=== PATIENT | male | born 1955 | race Caucasian/White ===

== ENCOUNTER 2017-06-19 09:25 | Day surgery (SDC) | payer BC ==
[2017-06-14 14:46] VITALS: BMI 27.2
[2017-06-19 10:12] VITALS: RESP 16; TEMP 97
[2017-06-19] MEDS ORDERED: LACTATED RINGERS 1,000 ML IV ONE ×2 (10:19)
[2017-06-19] MEDS ORDERED: LIDOCAINE 1% 20 ML VIAL (10MG/ML) FOR IV START INTRADERMA ONE (10:20)
[2017-06-19] MEDS ORDERED: PROPOFOL 10 MG/ML 20 ML VIAL IV ONE (10:48)
[2017-06-19] MEDS ORDERED: LIDOCAINE 1% INJ 10MG/ML (20 ML MDV) ONE (10:48)
[2017-06-19 11:40] VITALS: BP 146/86; PULSE 76
--- NOTE | 2017-06-19 18:21 | P.PCN ---
Date of Procedure: 06/19/17 Procedure(s) Performed: Procedure: Colonoscopy and polypectomy. Preoperative diagnosis: Screening for neoplasia, patient has history of polyps. Postoperative diagnosis: 1. Small distal sigmoid polyp snared but no large polyps or cancer. 2. Sigmoid diverticulosis with no evidence of acute diverticulitis or strictures. Preparation: HalfLytely prep. Sedation: Was provided by anesthesia. Brief clinical history: The patient is 61-year-old male who is scheduled for this evaluation for screening for neoplasia because of history of polyps. His last exam was around 5 years ago. The patient has no abdominal complaints, bleeding or anemia. Procedure: With the patient on his left lateral decubitus position and after informed consent and adequate sedation the perianal area was inspected and it did not show any fissures or fistulas. There were no masses felt on digital rectal examination. The Olympus CFQ 160L video colonoscope was then inserted in the rectum in the usual fashion and advanced to the cecum. There were several diverticular orifices seen scattered in the sigmoid with no evidence of acute diverticulitis or strictures. There was a small distal sigmoid polyp that was snared and retrieved by suction, but there were no large polyps or cancer. I retroflexed the endoscope in the rectum before the endoscope was withdrawn. The patient tolerated the procedure well. Plan: The patient was reassured. Discussed dietary measures. He will follow up with you as planned and I recommended repeat exam in 5 years.
== END 2017-06-19 11:50 | disposition home or self-care (01) ==
LOC: ORWHC2ENDO 09:25
DX: Z12.11 Encounter for screening for malignant neoplasm of colon (principal); K63.5 Polyp of colon; K57.30 Diverticulosis of large intestine without perforation or abscess without bleeding; I10 Essential (primary) hypertension; E78.5 Hyperlipidemia, unspecified; G47.33 Obstructive sleep apnea (adult) (pediatric); M10.9 Gout, unspecified; Z86.010 Personal history of colon polyps; Z79.1 Long term (current) use of non-steroidal anti-inflammatories (NSAID); Z79.899 Other long term (current) drug therapy
CPT/HCPCS: 45385; J2001; J2704

== ENCOUNTER → 2017-11-07 | Outpatient (CLI) | payer BC ==
--- NOTE | 2017-11-07 13:24 | US ---
EXAMINATION TYPE: US mass soft tissue chest/back DATE OF EXAM: 11/07/2017 COMPARISON: NONE CLINICAL HISTORY: D17.9 LIPOMA INTRAMUSCULAR. Lump right upper back for 8-10 years, getting larger Scanned within area of concern, right upper back, hypoechoic area noted = 9.2 x 2.4 x 6.5cm within th e subcutaneous fat IMPRESSION: Findings compatible with lipoma. MRI with overlying marker could be performed for additi onal evaluation.
== END | disposition home or self-care (01) ==
LOC: RADUSWWP 11:58
PROVIDERS: ATTEND Surgery Plastic and Reconstructive Surgery
DX: D17.9 Benign lipomatous neoplasm, unspecified (principal)

== ENCOUNTER 2018-02-22 08:32 | Day surgery (SDC) | payer BC ==
[2018-02-20 11:20] VITALS: BMI 28.7
[~2018-02-22 08:32] MED LIST: DEXAMETHASONE SOD PHOSPHATE 10 MG/ML 1 ML VIAL IV ONE; HEPARIN SODIUM,PORCINE 5,000 UNIT/ML 1 ML VIAL SQ ONE; HYDROmorphone 1 MG/ML 1 ML SYRINGE IVP PRN; LACTATED RINGERS 1,000 ML IV SCH; MIDAZOLAM 2 MG/2 ML VIAL IV PRN; ONDANSETRON 4 MG/2 ML VIAL IVP ONE; Pre Op ABX Message 1 EACH MISC MISCELLANE ONE; SCOPOLAMINE 1.5MG/72HR PATCH TRANSDERM ONE
[2018-02-22] MEDS ORDERED: LIDOCAINE 1% 20 ML VIAL (10MG/ML) FOR IV START INTRADERMA ONE (09:05)
[2018-02-22] MEDS ORDERED: BUPIVACAIN-EPI 0.5%-1:200,000 30 ML VIAL SQ ONE (10:38)
[2018-02-22] MEDS ORDERED: ceFAZolin IN SWFI 2 GM/20 ML SYRINGE IVP STA (10:44)
--- NOTE | 2018-02-22 10:44 | P.GSHP ---
History of Present Illness H&P Date: 02/22/18 CHIEF COMPLAINT: Back mass HISTORY OF PRESENT ILLNESS: The patient is a 62 year-old male with history of lipomas of the upper back. He presents today for surgical excision. PAST MEDICAL HISTORY: Please see list. PAST SURGICAL HISTORY: Please see list. MEDICATIONS: Please see list. ALLERGIES: Please see list. SOCIAL HISTORY: No illicit drug use FAMILY HISTORY: No reports of Crohn disease or ulcerative colitis. REVIEW OF ORGAN SYSTEMS: CONSTITUTIONAL: No reports of fevers or chills. GI: Denies any blood in stools or constipation. PHYSICAL EXAM: VITAL SIGNS: Stable Musculoskeletal: Approximately 20 cm lipomas, superficial, along the right upper back. SKIN: Lesion identified along bilateral thighs. GENERAL: Well developed and in no acute distress. Pleasant. HEENT: No sclera icterus. Extraocular movements grossly intact. Moist buccal mucosa. Head is atraumatic, normocephalic. Hears conversational speech. No nasal drainage. NECK: Supple without lymphadenopathy. No JV distention. CHEST: Non-labored respirations and equal bilateral excursions. CARDIOVASCULAR: Regular rate and rhythm. Palpable 2+ radial pulses. ABDOMEN: Soft. Non-tender. Nondistended. NEUROLOGIC: No focal or lateralizing signs. PSYCH: Appropriate affect. Alert and oriented to person, place and time. ASSESSMENT: 1. Lipoma along the upper back. PLAN: 1. Will proceed of excision of subcutaneous tumor along the upper back. 2. DVT prophylaxis. 3. Antibiotic prophylaxis. 4. Time of recovery, at least one week. Past Medical History Past Medical History: Hyperlipidemia, Hypertension, Skin Disorder, Sleep Apnea/ CPAP/BIPAP Additional Past Medical History / Comment(s): OCC KIDNEY STONES. GOUT. USES CPAP. HAS BACK LIPOMA AND LOWER BACK CYST. History of Any Multi-Drug Resistant Organisms: None Reported Additional Past Surgical History / Comment(s): COLONOSCOPY. Past Anesthesia/Blood Transfusion Reactions: No Reported Reaction Smoking Status: Former smoker - Past Family History Father Family Medical History: Cancer Mother Family Medical History: Cancer Medications and Allergies Home Medications Medication Instructions Recorded Confirmed Type Allopurinol [Zyloprim] 300 mg PO DAILY 06/14/17 02/20/18 History Atenolol [Tenormin] 25 mg PO DAILY 06/14/17 02/20/18 History Ibuprofen [Advil] 400 mg PO Q6HR PRN 06/14/17 02/20/18 History Simvastatin 40 mg PO DAILY 06/14/17 02/20/18 History Allergies Allergy/AdvReac Type Severity Reaction Status Date / Time No Known Allergies Allergy Verified 02/20/18 11:06 Surgical - Exam Vital Signs Temp Pulse Resp BP Pulse Ox 97.6 F 74 18 132/72 97 02/22/18 08:53 02/22/18 08:53 02/22/18 08:53 02/22/18 08:53 02/22/18 08:53
[2018-02-22] MEDS ORDERED: SUCCINYLCHOLINE CHLORIDE 100 MG/5 ML SYR IV ONE (10:46)
[2018-02-22] MEDS ORDERED: PROPOFOL 10 MG/ML 20 ML VIAL IV ONE (10:46)
[2018-02-22] MEDS ORDERED: MIDAZOLAM 2 MG/2 ML VIAL ONE (10:46)
[2018-02-22] MEDS ORDERED: ePHEDrine SULFATE/0.9% NACL/PF 50 MG/5 ML SYRINGE IV ONE (10:46)
[2018-02-22] MEDS ORDERED: LIDOCAINE 1% INJ 10MG/ML (20 ML MDV) ONE (10:46)
[2018-02-22] MEDS ORDERED: fentaNYL (PF) 50 MCG/ML 2 ML AMP ONE (10:46)
[2018-02-22] MEDS ORDERED: LACTATED RINGERS 1,000 ML IV ONE (11:37)
--- NOTE | 2018-02-22 12:25 | P.OP ---
Date of Procedure: 02/22/18 Description of Procedure: SURGEON: GAYE WHALEY MD NAIL MAKING MACHINE TENDER: None. PREOPERATIVE DIAGNOSES: 1. History of right upper back tumor, over 15 cm 2. Left lower back tumor, over 2 cm 3. Obstructive sleep apnea 4. Gout 5. Hyperlipidemia 6. Hypertensive heart disease POSTOPERATIVE DIAGNOSES: 1. History of right upper back tumor, over 15 cm to fascia 2. Left lower back tumor, 2.5 cm 3. Obstructive sleep apnea 4. Gout 5. Hyperlipidemia 6. Hypertensive heart disease PROCEDURES PERFORMED: 1. Excision of left lower back mass 6 cm x 3 cm, subcutaneous 2. Excision of right upper back mass 15 x 20 cm to fascia 3. Complex closure left lower back incision 7 cm with wide undermining 4. Complex closure right upper back incision 15 cm with wide undermining Anesthesia: GETA, local Estimated Blood Loss (ml): 10 Pathology: other (left lower back mass, 3'oclock short medial, long superior; right upper back mass) Condition: stable Disposition: same day COMPLICATIONS: None. INDICATIONS: The patient is a 62-year-old male who presents with symptomatic large right upper back including left lower back tumors. Benefits and risks of surgical intervention were described including bleeding, infection. Informed consent was obtained. DESCRIPTION OR PROCEDURE: Patient was brought into the operating room. After general induction, he was positioned prone position. The back was prepped and draped in a standard sterile fashion with ChloraPrep. Timeout protocol was confirmed with the surgical team regarding the patient's name, procedure to be performed including preoperative medications. DVT prophylaxis was confirmed. A field block was placed of the left lower back. Indelible marker was placed around the tumor for excision of 6 x 3 cm transverse elliptical incision. An incision using #15 blade was made along the marking into the dermis and subcutaneous tissue. Electro-Bovie cautery was used to excise the lesion deep into the subcutaneous tissue in a transverse elliptical fashion. Undermining was performed along for closure. 0 Vicryl for the deep subcutaneous tissue followed by 3-0 Vicryl was placed in interrupted fashion. 4-0 Monocryl in a running subcuticular fashion was placed along the dermis. The skin was cleansed and Exofin tape with liquid was applied for a four layer closure. The incision was covered with Optifoam dressing. Attention was now brought to the right upper back for the large 15 cm tumor. A field block was placed of the right upper back along the proposed transverse incision of 15 cm. An incision using #15 blade was made along the marking into the dermis and subcutaneous tissue. Electro-Bovie cautery was used to excise the lesion deep into fascia for dissection. Undermining was performed along for closure. 0 Vicryl for the deep subcutaneous tissue followed by 3-0 Vicryl was placed in interrupted fashion. 4-0 Monocryl in a running subcuticular fashion was placed along the dermis. The skin was cleansed and Exofin tape with liquid was applied for a four layer closure. The incision was covered with Optifoam dressing. A pressure dressing was placed along the right upper back incision given the wide deep space. Local anesthetic was placed. At the end of the procedure, needle, sponge, and instrument count was verified correct by neurosurgical physician assistant. The patient tolerated the procedure well. Operative Findings: 1. Wide undermining of lower back mass, 2.5 cm mass 2. Amorphous fatty tumor 15 x 8 cm in subcutaneous tissue to fascia
[2018-02-22 12:31] VITALS: TEMP 96.8
[2018-02-22 12:47] VITALS: RESP 16
[2018-02-22 13:30] VITALS: BP 149/76; PULSE 99
== END 2018-02-22 14:03 | disposition home or self-care (01) ==
LOC: OR 08:32
PROVIDERS: ATTEND Surgery Plastic and Reconstructive Surgery
DX: D23.5 Other benign neoplasm of skin of trunk (principal); D17.1 Benign lipomatous neoplasm of skin and subcutaneous tissue of trunk; E78.5 Hyperlipidemia, unspecified; I11.9 Hypertensive heart disease without heart failure; M10.9 Gout, unspecified; G47.33 Obstructive sleep apnea (adult) (pediatric); Z99.89 Dependence on other enabling machines and devices; Z79.899 Other long term (current) drug therapy; Z87.442 Personal history of urinary calculi; Z87.891 Personal history of nicotine dependence
CPT/HCPCS: 88304; 88305; 88311; 11406; 12032; 21933; J2250; J1644; J1100; J2405; J2001; J3010; J0330; J2704; J0690

== ENCOUNTER → 2022-07-27 | Outpatient (CLI) | payer MEDICARE ==
--- NOTE | 2022-07-27 15:06 | P.SLEEP ---
History of Present Illness DATE: 07/27/2022 CONSULTATION/NEW PATIENT EVALUATION HISTORY OF PRESENT ILLNESS/SLEEP-WAKE EVALUATION: 66-year-old gentleman had been evaluated in the sleep center for obstructive sleep apnea hypopnea syndrome. Patient has history of obstructive sleep apnea for about 8 years, he continued to use his CPAP equipment every night. I checked CPAP unit. CPAP pressure 7 cm of water, usage is 100% of nights, average 7.2 hours per night, Lyrica 20 L/m which is normal, apnea-hypopnea index 1.0 which is normal. SLEEP SCHEDULE: Usually sleep schedule from 10 PM to 5:30 AM 7 days a week. FALLING ASLEEP: No problems with falling asleep. DURING SLEEP: No snoring while patient is using CPAP equipment. He may wake up one time per night for using restroom. No history of hypnogogical hallucinations, sleep paralysis, or cataplexy. DURING THE DAY/WAKE STATE: Patient may have episodes of sleepiness during the day especially after known. [place] sleepiness scale is 6, which is normal patient may take 1 nap around 1 PM occasionally.[]. PAST MEDICAL HISTORY: Hypertension, gout, hyperlipidemia. PAST SURGICAL HISTORY: None. MEDICATIONS: Allopurinol 300 mg once a day, simvastatin 40 mg once a day, atenolol 20 mg once a day. SOCIAL HISTORY: Quit smoking 35 years ago, no alcohol consumption the present time. FAMILY HISTORY: Cancer. REVIEW OF SYSTEMS: Occasionally sleepiness. No fevers. No double vision. No recent chest pain. No shortness of breath. No abdominal pain. No bleeding episodes. No blood in urine. No seizure episodes. PHYSICAL EXAMINATION: GENERAL: A pleasant patient without any distress. VITAL SIGNS: BP 135/70 , HR 58 , RR 12 , weight 197.2 pounds, height 5 foot 8 inches, body mass index 29.9 . HEENT: PERRLA, EOMI. Evaluation of oropharynx showed tongue protrudes midline, low position of soft palate Mallampati 4. NECK: Supple. No JVD. Thyroid is not palpable. 19 inches in circumference. LUNGS: Clear to percussion and to auscultation. Good air exchange. No wheezing or rhonchi. HEART: S1, S2 regular. No murmurs, gallops or rubs. ABDOMEN: Soft and nontender. Bowel sounds are present. No organomegaly appreciated. EXTREMITIES: No clubbing or cyanosis. RN VASCULAR: Awake, alert, and oriented x3. Cranial nerves 2 to 7 intact. There is no fasciculation or atrophy noted. No focal deficits observed. ASSESSMENT: 1. Obstructive sleep apnea hypopnea syndrome. Patient demonstrated 100% compliance with treatment, benefiting from treatment, normal respiration on CPAP. 2. Overweight BMI 29.9. 3. Gout. 4. Hypertension. 5 hyperlipidemia. PLAN: 1. Prescription for all necessary CPAP supplies including nasal pillow mask, tube, filters, chamber for humidifier. 2. Patient will continue to use CPAP equipment every night for the whole night 3. Preferable position during sleep on the side. 4. No driving if patient feels any sleepiness. Patient is aware of civil and criminal liability for unsafe driving. 5. Sleep hygiene with regular sleep time for at least 7.5-8 hours. 6. Watching weight. 7. Follow-up visit in 6 months. Thank you very much for referring this patient for consultation. Sincerely, Steven William MD, PhD, FAASM. Diplomat of [employer], Sleep Medicine Board by [employer] Cardiothoracic Icu Rn of [facility] [place] Past Medical History Past Medical History: Hyperlipidemia, Hypertension, Sleep Apnea/CPAP/BIPAP Additional Past Medical History / Comment(s): OCC KIDNEY STONES. GOUT. USES CPAP. History of Any Multi-Drug Resistant Organisms: None Reported Additional Past Surgical History / Comment(s): COLONOSCOPY. CYSTS REMOVED FROM BACK Past Anesthesia/Blood Transfusion Reactions: No Reported Reaction Smoking Status: Former smoker - Past Family History Father Family Medical History: Cancer Mother Family Medical History: Cancer Medications and Allergies Home Medications Medication Instructions Recorded Confirmed Type Simvastatin 40 mg PO HS 06/14/17 05/03/22 History allopurinoL [Zyloprim] 300 mg PO HS 06/14/17 05/03/22 History atenoloL [Tenormin] 25 mg PO HS 06/14/17 05/03/22 History Allergies Allergy/AdvReac Type Severity Reaction Status Date / Time No Known Allergies Allergy Verified 05/05/22 13:20 Sleep Note - Sleep Note Sleep Note: Temperature: Pulse Rate: Respiratory Rate: Blood Pressure: SpO2: Height: Weight: BMI: Neck Circumference:
== END | disposition home or self-care (01) ==
LOC: SLEEP 14:34
PROVIDERS: ATTEND Internal Medicine
DX: G47.33 Obstructive sleep apnea (adult) (pediatric) (principal); I10 Essential (primary) hypertension; E78.5 Hyperlipidemia, unspecified; M10.9 Gout, unspecified; E66.3 Overweight; Z68.29 Body mass index [BMI] 29.0-29.9, adult; Z99.89 Dependence on other enabling machines and devices; Z87.891 Personal history of nicotine dependence
CPT/HCPCS: 99211

== ENCOUNTER → 2023-01-11 | Outpatient (CLI) | payer MEDICARE ==
--- NOTE | 2023-01-11 12:41 | P.PN ---
Subjective DATE: 01/11/2023 FOLLOW UP VISIT. Patient with obstructive sleep apnea hypopnea syndrome return to sleep center for follow-up visit. Information from previous visit have been reviewed. This is first visit after patient received new CPAP unit. Patient is using PAP equipment every night for the whole night, getting PAP supplies in time. Sometimes patient has condensation of water in the mask .[place] sleepiness scale is 11, which is slightly increased. I checked information from PAP unit. PAP unit pressure 629, average 8.8 cm H2O. Usage is 100 % for more then 4 hours, average 7 hours per night. Leak is 14.4 l/m, which is in acceptable range. Apnea Hypopnea Index is 0.2, which is normal. I explained patient and family how to adjust temperature in the tube and humidifier. Temperature is in the tube was increased to 82 to prevent condensation of water in the tube. MEDICATIONS:1. Allopurinol 300 mg once a day 2. Simvastatin 40 mg once a day 3. Atenolol 20 mg once a day During physical exam: GENERAL: A pleasant patient without any distress. VITAL SIGNS: BP 140/68, HR 54, RR 16, weight 203.4, temperature 98.1, oxygen saturation at room air 97 % . HEENT: PERRLA, EOMI.low position of soft palate, Mallapati 4 . NECK: Supple. No JVD. LUNGS: Clear to percussion and to auscultation. Good air exchange. No wheezing or rhonchi. HEART: S1, S2 regular. ABDOMEN: Soft and nontender.[] EXTREMITIES: No clubbing or cyanosis. SUPERVISOR STRIPPING: Awake, alert, and oriented x3. No focal deficit. Impressions: 1. Obstructive sleep apnea-hypopnea syndrome. Patient demonstrated great compliance with treatment, benefiting from treatment. 2. Hypertension. 3. Gout. 4. Hyperlipidemia. Plan: 1. Continue using PAP equipment every night for the whole night. 2. To change air filter at least 1-2 times per month. 3. PAP unit should stay lower then position of the head. 4. Advised patient to remove all remaining water from humidifier canister daily and make it dry after each usage. Refill canister with fresh distilled water before each usage. 5. Sleep hygiene with regular time in bed for at least 8 hours. 6. Precautions related to driving. No driving if feel any sleepiness. 7. I will maintain prescription for PAP supplies including mask, tube, filters. 8. Follow up visit in 6 months or earlier if patient has any problems. 9. Watching weight. Thank you very much for allowing me to participate in the management of your patient. Steven William MD, PhD, FAASM. Diplomat of [employer], Sleep Medicine Board by [employer] Stonework Supervisor of [facility] [place]
== END ==
LOC: 3 N SLEEP 10:48
PROVIDERS: ATTEND Internal Medicine
DX: G47.33 Obstructive sleep apnea (adult) (pediatric) (principal); I10 Essential (primary) hypertension; E78.5 Hyperlipidemia, unspecified; M10.9 Gout, unspecified; Z79.899 Other long term (current) drug therapy; Z99.89 Dependence on other enabling machines and devices; Z87.891 Personal history of nicotine dependence
CPT/HCPCS: 99212

== ENCOUNTER → 2023-02-14 | Outpatient (CLI) | payer MEDICARE ==
--- NOTE | 2023-02-14 14:58 | US ---
EXAMINATION TYPE: US venous doppler duplex LE RT DATE OF EXAM: 02/14/2023 2:39 PM COMPARISON: NONE CLINICAL INDICATION: Male, 67 years old with history of I80.9 PHLEBITIS AND THROMBOPHLEBITIS OF UNSPE CIFIE; Knee pain. On blood thinners for AFib. Patient states having lower leg swelling but has juanito e down. SIDE PERFORMED: Right TECHNIQUE: The lower extremity deep venous system is examined utilizing real time linear array sonog ana maria with graded compression, doppler sonography and color-flow sonography. VESSELS IMAGED: Common Femoral Vein Deep Femoral Vein Greater Saphenous Vein * Femoral Vein Popliteal Vein Small Saphenous Vein * Proximal Calf Veins (* superficial vessels) Right Leg: Negative for DVT IMPRESSION: No evidence of deep venous thrombosis.
== END | disposition home or self-care (01) ==
LOC: RADUSWWP 14:02
PROVIDERS: ATTEND Orthopaedic Surgery
DX: I80.9 Phlebitis and thrombophlebitis of unspecified site (principal); M10.9 Gout, unspecified; M25.461 Effusion, right knee
CPT/HCPCS: 84550

== ENCOUNTER → 2023-07-26 | Outpatient (CLI) | payer MEDICARE ==
[2023-07-26 14:26] VITALS: BP 146/76; PULSE 62; RESP 16; TEMP 97.6
--- NOTE | 2023-07-26 15:07 | P.PN ---
Subjective DATE: 07/26/2023 FOLLOW UP VISIT. Patient with obstructive sleep apnea hypopnea syndrome return to sleep center for follow-up visit. Information from previous visit have been reviewed. Patient is using PAP equipment every night for the whole night, getting PAP supplies in time. The patient does not have significant problems with the mask, PAP unit and humidification. [place] sleepiness scale is 5, which is normal. I checked information from PAP unit. PAP unit pressure 6-9, average 8.8 cm H2O. Usage is 100% for more then 4 hours, average 7.2 hours per night. Leak is 12.7 l/m, which is in acceptable range. Apnea Hypopnea Index is 0.1, which is normal. MEDICATIONS:1. Allopurinol 300 mg once a day 2. Simvastatin 40 mg once a day 3. Atenolol 25 mg twice a day 4. Eliquis 5 mg twice a day 5. Flecainide 50 mg twice a day During physical exam: GENERAL: A pleasant patient without any distress. VITAL SIGNS: Please see below, weight 209 pounds, BMI 31.4. HEENT: PERRLA, EOMI.low position of soft palate, Mallapati 4 . NECK: Supple. No JVD. LUNGS: Clear to percussion and to auscultation. Good air exchange. No wheezing or rhonchi. HEART: S1, S2 regular. ABDOMEN: Soft and nontender.[] EXTREMITIES: No clubbing or cyanosis. SUBSTATION OPERATOR: Awake, alert, and oriented x3. No focal deficit. Impressions: 1. Obstructive sleep apnea-hypopnea syndrome. Patient demonstrated great compliance with treatment, benefiting from treatment. 2. Obesity, patient increased weight on 6 pounds, BMI 31.4. 3. Hypertension. 4. Hyperlipidemia. 5. Gout. Plan: 1. Continue using PAP equipment every night for the whole night. 2. Patient will consider to try nasal mask instead of nasal pillow mask. 3. PAP unit should stay lower then position of the head. 4. Advised patient to remove all remaining water from humidifier canister daily and make it dry after each usage. Refill canister with fresh distilled water before each usage. 5. Sleep hygiene with regular time in bed for at least 8 hours. 6. Precautions related to driving. No driving if feel any sleepiness. 7. I will maintain prescription for PAP supplies including mask, tube, filters. 8. Follow up visit in 6 months or earlier if patient has any problems. 9. Watching and losing weight. Thank you very much for allowing me to participate in the management of your patient. Steven William MD, PhD, FAASM. Diplomat of [place] [employer], Sleep Medicine Board by [employer] Clay Molder of [facility] [place] Objective - Vital Signs Vital signs: Vital Signs Temp 97.6 F 07/26/23 14:05 Pulse 62 07/26/23 14:05 Resp 16 07/26/23 14:05 BP 146/76 07/26/23 14:05 Pulse Ox 97 07/26/23 14:05 FiO2 Intake & Output 07/25/23 07/26/23 07/26/23 18:59 06:59 18:59 Weight 92.533 kg
== END ==
LOC: 3 N SLEEP 13:55
PROVIDERS: ATTEND Internal Medicine
DX: G47.33 Obstructive sleep apnea (adult) (pediatric) (principal); E66.9 Obesity, unspecified; I10 Essential (primary) hypertension; E78.5 Hyperlipidemia, unspecified; M10.9 Gout, unspecified; Z68.31 Body mass index [BMI] 31.0-31.9, adult; Z79.01 Long term (current) use of anticoagulants; Z79.899 Other long term (current) drug therapy; Z99.89 Dependence on other enabling machines and devices; Z87.891 Personal history of nicotine dependence
CPT/HCPCS: 99212

== ENCOUNTER 2024-07-18 11:22 | Emergency (ER) | payer MEDICARE ==
--- NOTE | 2024-07-18 11:56 | ED ---
Abdominal Pain HPI - General Chief Complaint: Abdominal Pain Stated Complaint: abd pain Time Seen by Provider: 07/18/24 11:56 Source: patient, family (), RN notes reviewed, old records reviewed Mode of arrival: ambulatory Limitations: no limitations - History of Present Illness Initial Comments: 68-year-old male presented the ER for evaluation of right flank pain. Patient reports a history of kidney stones and reports this pain feels similar. Pain started last night with right flank pain and nausea. He states this has persisted into today. He does note what he believes was blood in his urine earlier this week. He does take Eliquis as he was recently diagnosed with atrial fibrillation. Patient has taken dxce-uqx-rrihngz ibuprofen for pain control last dose 9 AM. He denies any fevers, chills, vomiting, diarrhea/constipation, dysuria. Patient has followed up with Dr. Caballero in the past. No other complaints. - Related Data Home Medications Medication Instructions Recorded Confirmed Simvastatin 40 mg PO HS 06/14/17 07/26/23 allopurinoL [Zyloprim] 300 mg PO HS 06/14/17 07/26/23 atenoloL [Tenormin] 25 mg PO BID 06/14/17 07/26/23 Apixaban [Eliquis] 5 mg PO BID 07/26/23 07/26/23 Flecainide [Tambocor] 50 mg PO BID 07/26/23 07/26/23 Previous Rx's Medication Instructions Recorded HYDROcodone/APAP 7.5-325MG [[place] 1 tab PO Q6HR PRN 3 Days #12 tab 07/18/24 7.5-325] Ondansetron Odt [Zofran Odt] 4 mg PO Q8HR PRN #10 tab 07/18/24 Tamsulosin [Flomax] 0.4 mg PO DAILY #7 cap 07/18/24 Allergies Allergy/AdvReac Type Severity Reaction Status Date / Time No Known Allergies Allergy Verified 05/05/22 13:20 Review of Systems ROS Statement: Those systems with pertinent positive or pertinent negative responses have been documented in the HPI. ROS Other: All systems not noted in ROS Statement are negative. Past Medical History Past Medical History: Hyperlipidemia, Hypertension, Sleep Apnea/CPAP/BIPAP Additional Past Medical History / Comment(s): OCC KIDNEY STONES. GOUT. USES CPAP. History of Any Multi-Drug Resistant Organisms: None Reported Additional Past Surgical History / Comment(s): COLONOSCOPY. CYSTS REMOVED FROM BACK Past Anesthesia/Blood Transfusion Reactions: No Reported Reaction Past Psychological History: No Psychological Hx Reported Smoking Status: Former smoker Past Alcohol Use History: None Reported Past Drug Use History: None Reported - Past Family History Father Family Medical History: Cancer Mother Family Medical History: Cancer General Exam Limitations: no limitations General appearance: alert, in no apparent distress Respiratory exam: Present: normal lung sounds bilaterally. Absent: respiratory distress, wheezes, rales, rhonchi, stridor Cardiovascular Exam: Present: regular rate, irregular rhythm, normal heart sounds GI/Abdominal exam: Present: soft, normal bowel sounds. Absent: distended, tenderness, guarding, rebound, rigid Back exam: Present: normal inspection, full ROM, CVA tenderness (R) Neurological exam: Present: alert, oriented X3, CN II-XII intact Skin exam: Present: warm, dry, intact, normal color. Absent: rash Course Vital Signs 07/18/24 07/18/24 07/18/24 11:23 13:34 14:15 Temperature 97.7 F 97.8 F Pulse Rate 60 61 62 Respiratory 18 18 20 Rate Blood Pressure 189/80 156/83 152/84 O2 Sat by Pulse 97 98 97 Oximetry - Reevaluation(s) Reevaluation #1: 07/18/24 13:54 Case discussed with on-call urology, Dr. Louis. Patient can be discharged home with Flomax and pain control follow-up closely with urology next week. Medical Decision Making - Medical Decision Making Was pt. sent in by a medical professional or institution (, PA, HUMAN RESOURCES OPERATIONS MANAGER, urgent care, hospital, or care home...) When possible be specific @ -No Did you speak to anyone other than the patient for history (EMS, parent, family, police, friend...)? What history was obtained from this source @ -Patient's , at bedside, aiding in HPI and past medical history. Did you review nursing and triage notes (agree or disagree)? Why? @ -I reviewed and agree with nursing and triage notes Were old charts reviewed (outside hosp., previous admission, EMS record, old EKG, old radiological studies, urgent care reports/EKG's, care home records)? Report findings @ -No old charts were reviewed Differential Diagnosis (chest pain, altered mental status, abdominal pain women, abdominal pain men, vaginal bleeding, weakness, fever, dyspnea, syncope, headache, dizziness, GI bleed, back pain, seizure, CVA, palpatations, mental health, musculoskeletal)? @ -Differential Abdominal Pain Men: Appendicitis, cholecystitis, diverticulosis, ischemic bowel, pancreatitis, hepatitis, UTI, gastroenteritis, AAA, incarcerated hernia, bowel obstruction, constipation, inflammatory bowel, hepatitis, peptic ulcer disease, splenic infarction, perforated viscus, testicular torsion, this is not meant to be an all-inclusive list EKG interpreted by me (3pts min.). @ -None done X-rays interpreted by me (1pt min.). @ -None done CT interpreted by me (1pt min.). @ -CT abdomen pelvis showing a 8 mm renal calculus at upper right ureter causing moderate right sided hydronephrosis. There is an additional 4 mm stone dependent in the right renal pelvis. Moderate perinephric edema on the right likely secondary to obstruction. Diverticulosis no acute diverticulitis. Likely chronic bladder wall hypertrophy. Numerous bilateral nonobstructing nephrolithiasis measuring up to 1.5 cm. U/S interpreted by me (1pt. min.). @ -None done What testing was considered but not performed or refused? (CT, X-rays, U/S, labs)? Why? @ -None What meds were considered but not given or refused? Why? @ -None Did you discuss the management of the patient with other professionals (professionals i.e. , PA, HUMAN RESOURCES OPERATIONS MANAGER, lab, RT, psych nurse, social service director, loading checker, teacher, airfield services officer, case supervisor)? Give summary @ -Yes, Case discussed with on-call urology, Dr. Louis. He states patient can be discharged with symptomatic control and follow-up closely outpatient early next week. Was smoking cessation discussed for >3mins.? @ -No Was critical care preformed (if so, how long)? @ -No Were there social determinants of health that impacted care today? How? (Homelessness, low income, unemployed, alcoholism, drug addiction, transportation, low edu. Level, literacy, decrease access to med. care, prison, rehab)? @ -No Was there de-escalation of care discussed even if they declined (Discuss DNR or withdrawal of care, Hospice)? DNR status @ -No What co-morbidities impacted this encounter? (DM, HTN, Smoking, COPD, CAD, Cancer, CVA, ARF, Chemo, Hep., AIDS, mental health diagnosis, sleep apnea, morbid obesity)? @ -Atrial fibrillation on Eliquis, history of kidney stones Was patient admitted / discharged? Hospital course, mention meds given and route, prescriptions, significant lab abnormalities, going to OR and other pertinent info. @ -Discharge. 68-year-old male presented to the ER for evaluation of right fl ank pain. Upon arrival, patient afebrile and mildly hypertensive 189/80 vitals otherwise acceptable limits. My evaluation, patient sitting on side of bed hunched over no signs of acute respiratory distress. Right CVA tenderness present. No focal abdominal discomfort. Laboratories along with CT abdomen pelvis will be obtained, patient is agreeable. Laboratory studies showed a leukocytosis of 12.9 with a left shift. PAULA with a BUN of 23, creatinine 1.56 with a GFR of 45. Urinalysis is hemorrhagic with 55 RBCs and large blood, concerning of obstructing kidney stone, no infection or bacteria. CT abdomen pelvis confirming this with an 8 mm stone noted to right upper ureter causing right-sided moderate hydronephrosis. There is a secondary 4 mm stone in renal pelvis as well. Patient received symptomatic control with IV fluids, Zofran, Dilaudid and Tylenol. Upon reevaluation, patient reporting pain is a 1 out of 10. Given size of stone case was discussed with on-call urology, Dr. Louis. He states as patient's pain is controlled he can be discharged home with close outpatient follow-up to urology next week. Patient provided prescription of Flomax, [place] and Zofran. Patient also discharged with urinary strainer. Strict return parameters discussed. Patient discharged in stable condition with follow-up to urology, referral given. Patient and patient's , at bedside, verbally expressed understanding and agreement with care plan. Case discussed with ED attending, Dr. Garvin. Undiagnosed new problem with uncertain prognosis? @ -No Drug Therapy requiring intensive monitoring for toxicity (Heparin, Nitro, Insulin, Cardizem)? @ -No Were any procedures done? @ -No Diagnosis/symptom? @ -Ureterolithiasis Acute, or Chronic, or Acute on Chronic? @ -Acute Uncomplicated (without systemic symptoms) or Complicated (systemic symptoms)? @ -Complicated Side effects of treatment? @ -No Exacerbation, Progression, or Severe Exacerbation? @ -No Poses a threat to life or bodily function? How? (Chest pain, [place], [place], pneumonia, PE, COPD, DKA, ARF, appy, cholecystitis, CVA, Diverticulitis, Homicidal, Suicidal, threat to staff... and all critical care pts) @ -Low at this time - Lab Data Result diagrams: 07/18/24 12:10 07/18/24 12:10 Lab Results 07/18/24 07/18/24 07/18/24 Range/Units 12:10 12:10 12:10 WBC 12.90 H (4.50-10.00) 10*3/uL RBC 4.80 (4.40-5.60) 10*6/uL Hgb 16.1 (13.0-17.0) g/dL Hct 45.3 (39.6-50.0) % MCV 94.4 (80.0-97.0) fL MCH 33.5 H (27.0-32.0) pg MCHC 35.5 (32.0-37.0) g/dL Plt Count 192 (140-440) 10*3/uL MPV 10.1 (9.5-12.2) fL Immature Gran % (Auto) 0.3 % Neutrophils % 77.4 % Lymphocytes % 15.0 % Monocytes % 6.5 % Eosinophils % 0.5 % Basophils % 0.3 % Immature Gran # 0.04 (0.00-0.04) 10*3/uL Neutrophils # 9.99 H (1.80-7.70) 10*3/uL Lymphocytes # 1.93 (0.90-5.00) 10*3/uL Monocytes # 0.84 (0.20-1.00) 10*3/uL Eosinophils # 0.06 (0.04-0.35) 10*3/uL Basophils # 0.04 (0.00-0.10) 10*3/uL Sodium 137 (137-145) mmol/L Potassium 4.9 (3.5-5.1) mmol/L Chloride 102 (98-107) mmol/L Carbon Dioxide 24 (22-30) mmol/L Anion Gap 11 mmol/L BUN 23 H (9-20) mg/dL Creatinine 1.56 H (0.66-1.25) mg/dL Est GFR (CKD-EPI)AfAm 52 (>60 ml/min/1.73 sqM) Est GFR (CKD-EPI)NonAf 45 (>60 ml/min/1.73 sqM) Glucose 116 H (74-99) mg/dL Plasma Lactic Acid Damion 1.4 (0.7-2.0) mmol/L Calcium 10.2 (8.4-10.2) mg/dL Total Bilirubin 0.5 (0.2-1.3) mg/dL AST 28 (17-59) U/L ALT 30 (4-49) U/L Alkaline Phosphatase 72 (38-126) U/L Total Protein 7.3 (6.3-8.2) g/dL Albumin 4.6 (3.5-5.0) g/dL Amylase 63 (30-110) U/L Lipase 109 (23-300) U/L Urine Color Urine Appearance (Clear) Urine pH (5.0-8.0) Ur Specific [place] (1.001-1.035) Urine Protein (Negative) Urine Glucose (UA) (Negative) Urine Ketones (Negative) Urine Blood (Negative) Urine Nitrite (Negative) Urine Bilirubin (Negative) Urine Urobilinogen (<2.0) mg/dL Ur Leukocyte Esterase (Negative) Urine RBC (0-5) /hpf Urine WBC (0-5) /hpf Urine Mucus (None) /hpf 07/18/24 Range/Units 12:10 WBC (4.50-10.00) 10*3/uL RBC (4.40-5.60) 10*6/uL Hgb (13.0-17.0) g/dL Hct (39.6-50.0) % MCV (80.0-97.0) fL MCH (27.0-32.0) pg MCHC (32.0-37.0) g/dL Plt Count (140-440) 10*3/uL MPV (9.5-12.2) fL Immature Gran % (Auto) % Neutrophils % % Lymphocytes % % Monocytes % % Eosinophils % % Basophils % % Immature Gran # (0.00-0.04) 10*3/uL Neutrophils # (1.80-7.70) 10*3/uL Lymphocytes # (0.90-5.00) 10*3/uL Monocytes # (0.20-1.00) 10*3/uL Eosinophils # (0.04-0.35) 10*3/uL Basophils # (0.00-0.10) 10*3/uL Sodium (137-145) mmol/L Potassium (3.5-5.1) mmol/L Chloride (98-107) mmol/L Carbon Dioxide (22-30) mmol/L Anion Gap mmol/L BUN (9-20) mg/dL Creatinine (0.66-1.25) mg/dL Est GFR (CKD-EPI)AfAm (>60 ml/min/1.73 sqM) Est GFR (CKD-EPI)NonAf (>60 ml/min/1.73 sqM) Glucose (74-99) mg/dL Plasma Lactic Acid [place] (0.7-2.0) mmol/L Calcium (8.4-10.2) mg/dL Total Bilirubin (0.2-1.3) mg/dL AST (17-59) U/L ALT (4-49) U/L Alkaline Phosphatase (38-126) U/L Total Protein (6.3-8.2) g/dL Albumin (3.5-5.0) g/dL Amylase (30-110) U/L Lipase (23-300) U/L Urine Color Light Yellow Urine Appearance Clear (Clear) Urine pH 5.5 (5.0-8.0) Ur Specific [place] 1.017 (1.001-1.035) Urine Protein Negative (Negative) Urine Glucose (UA) Negative (Negative) Urine Ketones Negative (Negative) Urine Blood Large H (Negative) Urine Nitrite Negative (Negative) Urine Bilirubin Negative (Negative) Urine Urobilinogen <2.0 (<2.0) mg/dL Ur Leukocyte Esterase Trace H (Negative) Urine RBC 55 H (0-5) /hpf Urine WBC 3 (0-5) /hpf Urine Mucus Rare H (None) /hpf - Radiology Data Radiology results: report reviewed, image reviewed Disposition Clinical Impression: Kidney stone Disposition: HOME SELF-CARE Condition: Stable Instructions (If sedation given, give patient instructions): Kidney Stones (ED), How to Strain Your Urine (ED) Additional Instructions: You may take [place] up to every 6 hours for pain control. I recommend taking hcca-kul-odrmima MiraLAX while taking [place] as these medications may make you constipated. Take Zofran and Flomax as prescribed. Follow-up closely with urology. Return to the ER for any new or worsening concerns. Prescriptions: Tamsulosin [Flomax] 0.4 mg PO DAILY #7 cap HYDROcodone/APAP 7.5-325MG [[place] 7.5-325] 1 tab PO Q6HR PRN 3 Days #12 tab PRN Reason: Pain Ondansetron Odt [Zofran Odt] 4 mg PO Q8HR PRN #10 tab PRN Reason: Nausea Is patient prescribed a controlled substance at d/c from ED?: Yes When asked, does pt state using other controlled substances?: No If prescribed controlled substance>3 days was MAPS reviewed?: Prescribed <3 Days If opioid is for acute pain is fill amount 7 days or less?: Yes If Rx opioid, was Start Talking consent form obtained?: Yes Referrals: Shawna Michaels MD [Primary Care Provider] - 1-2 days Steven Louis MD [STAFF PHYSICIAN] - 1-2 days Time of Disposition: 14:01
[2024-07-18] MEDS: ACETAMINOPHEN TAB 500 MG TAB PO STA (12:12)
[2024-07-18] MEDS: ONDANSETRON 4 MG/2 ML VIAL IVP STA (12:13)
[2024-07-18] MEDS: HYDROmorphone 0.5 MG/0.5 ML SYRINGE IVP STA (12:16)
[2024-07-18] MEDS: LACTATED RINGERS 500 ML IV ONE (12:18)
[2024-07-18 12:27] LABS: Basophils # (A) 0.04 10*3/uL (0.00-0.10); Basophils % (A) 0.3 %; Eosinophils # (A) 0.06 10*3/uL (0.04-0.35); Eosinophils % (A) 0.5 %; HCT 45.3 % (39.6-50.0); HGB 16.1 g/dL (13.0-17.0); Lymphocytes # (A) 1.93 10*3/uL (0.90-5.00); MCH 33.5 pg (27.0-32.0); MCHC 35.5 g/dL (32.0-37.0); MCV 94.4 fL (80.0-97.0); Mean Platelet Volume 10.1 fL (9.5-12.2); Monocytes # (A) 0.84 10*3/uL (0.20-1.00); Monocytes % (A) 6.5 %; Neutrophils # (A) 9.99 10*3/uL (1.80-7.70); Neutrophils % (A) 77.4 %; Platelet Count 192 10*3/uL (140-440); RDW 12.4 % (11.5-14.5)
[2024-07-18 12:38] LABS: ALT 30 U/L (4-49); AST 28 U/L (17-59); African American GFR (CKD) 52 (>60 ml/min/1.73 sqM); Albumin 4.6 g/dL (3.5-5.0); Alkaline Phosphatase 72 U/L (38-126); Amylase 63 U/L (30-110); Anion Gap 11 mmol/L; Appearance,Urine Clear (Clear); Bilirubin,Urine Negative (Negative); Blood Urea Nitrogen 23 mg/dL (9-20); Blood,Urine Large (Negative); Calcium 10.2 mg/dL (8.4-10.2); Carbon Dioxide 24 mmol/L (22-30); Chloride 102 mmol/L (98-107); Color,Urine Light Yellow; Glucose 116 mg/dL (74-99); Glucose,Urine (UA) Negative (Negative); Ketones,Urine Negative (Negative); Leukocyte Esterase,Urine Trace (Negative); Lipase 109 U/L (23-300); Mucus,Urine Rare /hpf; Nitrite,Urine Negative (Negative); Non-African American GFR(CKD) 45 (>60 ml/min/1.73 sqM); PH, Urine 5.5 (5.0-8.0); Potassium 4.9 mmol/L (3.5-5.1); Protein,Urine Negative (Negative); RBC,Urine 55 /hpf (0-5); Sodium 137 mmol/L (137-145); Specific Gravity,Urine 1.017 (1.001-1.035); Total Bilirubin 0.5 mg/dL (0.2-1.3); Total Protein 7.3 g/dL (6.3-8.2); Urobilinogen,Urine <2.0 mg/dL (<2.0); WBC,Urine 3 /hpf (0-5)
--- NOTE | 2024-07-18 13:26 | CT ---
EXAMINATION TYPE: CT abdomen pelvis wo con DATE OF EXAM: 07/18/2024 12:41 PM COMPARISON: None. CLINICAL INDICATION: Male, 68 years old with history of r flank pain hx stones; Right flank pain, his tory of stones TECHNIQUE: CT of the abdomen and pelvis without IV contrast. Coronal and sagittal constructions perfo rmed. CT DLP: 741.4 mGycm, Automated exposure control for dose reduction was used. FINDINGS: LOWER CHEST: Unremarkable ABDOMEN LIVER: Unremarkable GALLBLADDER AND BILE DUCTS: Unremarkable. PANCREAS: Unremarkable. SPLEEN: Unremarkable. ADRENAL GLANDS: Unremarkable. KIDNEYS AND URETERS: There are numerous bilateral renal calculi, largest measuring 1.5 cm. There is a 2.4 cm cyst left kidney. Moderate right-sided hydronephrosis secondary to an 8 mm stone of the right ureter. There is a 4 mm stone dependent in the dilated left right pelvis. Moderate perinephric edema likely reactive to the obstruction. Correlate to exclude superimposed infection. PELVIS BLADDER: Mild circumferential bladder wall thickening. REPRODUCTIVE: Prostate gland enlarged at 4.9 cm wide with central calcifications. No abnormal fluid c ollection in the pelvis or pelvic pelvic lymphadenopathy. ABDOMEN & PELVIS STOMACH AND BOWEL: Small hiatal hernia. No evidence of bowel obstruction. Normal appendix. Moderate a mount of stool. Left-sided colonic diverticulosis. No pericolonic inflammatory change. PERITONEUM/RETROPERITONEUM: No evidence of pneumoperitoneum or free fluid. VASCULATURE: No evidence of aortic aneurysm. MUSCULOSKELETAL: Moderate degenerative disc disease L5-S1 and mild elsewhere throughout the visualize d spine. LYMPH NODES: No gross evidence for lymphadenopathy. SOFT TISSUE/ABDOMINAL WALL: Tiny fatty umbilical hernia. IMPRESSION: 1. Numerous bilateral nephrolithiasis with stones measuring up to 1.5 cm. 2. However, there is moderate right-sided obstructive uropathy secondary to an 8 mm stone in the uppe r right ureter. There is an additional 4 mm stone dependent in the dilated right renal pelvis which w ould imminently passed in the near future as well. 3. Moderate perinephric edema on the right is likely secondary to obstruction. Correlate to exclude s uperimposed infection. 4. Left sided colonic diverticulosis without evidence for acute diverticulitis. 5. Mild circumferential bladder wall thickening, likely chronic bladder wall hypertrophy. Prostatomeg violeta of 4.9 cm wide area correlating with patient's symptoms and PSA values. [facility], , 07/18/2024 1:24 PM
[2024-07-18 14:17] VITALS: BP 152/84; PULSE 62; RESP 20; TEMP 97.8
== END 2024-07-18 14:17 | disposition home or self-care (01) ==
LOC: EC 11:22
DX: N20.2 Calculus of kidney with calculus of ureter (principal); I48.91 Unspecified atrial fibrillation; Z87.891 Personal history of nicotine dependence
CPT/HCPCS: 36415; 80053; 82150; 83605; 83690; 85025; 81001; 74176; 99284; 96374; 96375; 96361; J2405; J1171

== ENCOUNTER → 2024-07-23 | Outpatient (CLI) | payer MEDICARE ==
--- NOTE | 2024-07-23 15:39 | XR ---
EXAMINATION TYPE: XR KUB DATE OF EXAM: 07/23/2024 COMPARISON: CT abdomen and pelvis 07/18/2024, abdominal radiograph 3 05/08/2013 HISTORY: Calculus of kidneys TECHNIQUE: Single supine KUB image of the abdomen is obtained FINDINGS: Small bowel demonstrates no evidence for dilatation or air fluid levels. Gas and fecal material is seen in non-distended colon. No convincing evidence for pneumoperitoneum. Multiple bilateral renal calculi identified largest in the right kidney measuring up to 2.4 cm. Redem onstration of calculus within the expected right renal pelvis measuring up to 7 mm. Suspected 7 mm ca lculus within the proximal right ureter which is slightly advanced from prior exam at the level of th e L3-L4 region. Left pelvic phlebolith redemonstrated. The lung bases are clear. The osseous structures are intact. IMPRESSION: Redemonstration of bilateral renal calculi with slight advancement of proximal right ureteral calculu sSujata [facility], , 07/23/2024 3:36 PM
== END | disposition home or self-care (01) ==
LOC: RADXRMAIN 15:19
PROVIDERS: ATTEND Urology
DX: N20.2 Calculus of kidney with calculus of ureter (principal)
CPT/HCPCS: 74018

== ENCOUNTER 2024-07-30 05:52 | Day surgery (SDC) | payer MEDICARE ==
--- NOTE | 2024-07-29 10:55 | P.GSHP ---
History of Present Illness H&P Date: 07/29/24 68-year-old gentleman with a history of flank pain and kidney stones. He recently was found to have a 9 mm right UPJ stone. He is having intermittent pain. He was evaluated and found to have a right UPJ stone and bilateral renal stones. We discussed treatment options. I recommended right percutaneous nephrostolithotomy which she declines. He this comes for right ureteroscopy with laser lithotripsy to the ureteral stone. Risks and complications have been described. - Constitutional Constitutional: Denies chills, Denies fever - EENT Eyes: denies blurred vision, denies pain Ears, nose, mouth and throat: Denies headache, Denies sore throat - Cardiovascular Cardiovascular: Denies chest pain, Denies shortness of breath - Respiratory Respiratory: Denies cough, Denies 7 - Gastrointestinal Gastrointestinal: Denies abdominal pain, Denies diarrhea, Denies nausea, Denies vomiting - Genitourinary (Female) Genitourinary: Denies dysuria, Denies hematuria - Genitourinary (Male) Genitourinary: Denies dysuria, Denies hematuria - Musculoskeletal Musculoskeletal: Denies myalgias - Integumentary Integumentary: Denies pruritus, Denies rash - Neurological Neurological: Denies numbness, Denies weakness - Psychiatric Psychiatric: Denies anxiety, Denies depression - Endocrine Endocrine: Denies fatigue, Denies weight change Past Medical History Past Medical History: Atrial Fibrillation, Hyperlipidemia, Hypertension, Sleep Apnea/CPAP/BIPAP Additional Past Medical History / Comment(s): OCC KIDNEY STONES. GOUT. USES CPAP. has passed most kidney stones on his own History of Any Multi-Drug Resistant Organisms: None Reported Additional Past Surgical History / Comment(s): COLONOSCOPY. CYSTS REMOVED FROM BACK, Past Anesthesia/Blood Transfusion Reactions: No Reported Reaction Smoking Status: Former smoker - Past Family History Father Family Medical History: Cancer Mother Family Medical History: Cancer Medications and Allergies Home Medications Medication Instructions Recorded Confirmed Type Simvastatin 40 mg PO HS 06/14/17 07/25/24 History allopurinoL [Zyloprim] 300 mg PO HS 06/14/17 07/25/24 History atenoloL [Tenormin] 25 mg PO BID 06/14/17 07/25/24 History Apixaban [Eliquis] 5 mg PO BID 07/26/23 07/25/24 History Flecainide [Tambocor] 50 mg PO BID 07/26/23 07/25/24 History HYDROcodone/APAP 7.5-325MG [[place] 1 tab PO Q6HR PRN 3 Days #12 tab 07/18/24 07/25/24 Rx 7.5-325] Tamsulosin [Flomax] 0.4 mg PO BID 07/25/24 07/25/24 History Allergies Allergy/AdvReac Type Severity Reaction Status Date / Time No Known Allergies Allergy Verified 07/25/24 14:31 Surgical - Exam - General well developed, well nourished, no distress - Eyes normal ocular movement, no icteric - ENT no hearing loss, no congestion - Neck no masses, trachea midline - Respiratory normal respiratory effort, clear to auscultation - Abdomen Abdomen: soft, non tender, no guarding, no rigid, no rebound - Integumentary no rash, no abnormal pigmentation - Neurologic no disoriented, no combative - Psychiatric oriented to time, oriented to person, oriented to place, speech is normal, memory intact Results - Imaging Abdominal x-ray: report reviewed, image reviewed CT scan - abdomen: report reviewed, image reviewed CT scan - pelvis: report reviewed, image reviewed Assessment and Plan Assessment: Impression: 9 mm right ureteral stone. Bilateral renal stones. Recommendations right ureteroscopy with laser lithotripsy to the right ureteral calculus.
--- NOTE | 2024-07-30 06:29 | XR ---
EXAMINATION TYPE: XR KUB DATE OF EXAM: 07/30/2024 6:23 AM CLINICAL INDICATION: Male, 68 years old with history of kidney stones, pain TECHNIQUE: 2 supine views of the abdomen. COMPARISON: Abdominal x-ray July 23, 2024. FINDINGS: Persistent multiple bilateral renal calculi including stable largest right renal calculus m easuring 2.6 cm. There is likely 8 mm calculus at UPJ or proximal ureter redemonstrated. Single small left-sided pelvic phlebolith. Probable new tiny dependent calculus in bladder. Overall nonobstructive bowel gas pattern. Osseous structures are intact. Lung bases are clear. IMPRESSION: As above. [facility], , 07/30/2024 6:26 AM
[2024-07-30] MEDS: LACTATED RINGERS 1,000 ML IV ONE (06:43)
[2024-07-30] MEDS: LACTATED RINGERS 1,000 ML IV SCH (06:53)
[2024-07-30] MEDS: ONDANSETRON 4 MG/2 ML VIAL IVP ONE (06:54)
[2024-07-30] MEDS: DEXAMETHASONE SOD PHOSPHATE 4 MG/ML 1 ML VIAL IV ONE (06:54)
[2024-07-30] MEDS ORDERED: fentaNYL (PF) 50 MCG/ML 2 ML AMP IV PRN (07:00)
[2024-07-30] MEDS ORDERED: HYDROmorphone 0.5 MG/0.5 ML SYRINGE IVP PRN (07:00)
[2024-07-30] MEDS ORDERED: LIDOCAINE 1% INJ 10MG/ML (20 ML MDV) ONE (07:34)
[2024-07-30] MEDS ORDERED: GLYCOPYRROLATE 0.2 MG/ML 2 ML VIAL ONE (07:34)
[2024-07-30] MEDS ORDERED: KETOROLAC 15 MG/ML 1 ML VIAL ONE (07:34)
[2024-07-30] MEDS ORDERED: fentaNYL (PF) 50 MCG/ML 2 ML AMP ONE (07:34)
[2024-07-30] MEDS ORDERED: PROPOFOL 10 MG/ML 20 ML VIAL IV ONE (07:34)
[2024-07-30] MEDS ORDERED: ePHEDrine 50 MG/ML 1 ML VIAL ONE (07:34)
[2024-07-30] MEDS: ceFAZolin 2 GM in DEXTROSE 5% IN WATER 50 ML IVPB PRN (07:37)
[2024-07-30 08:59] VITALS: TEMP 97.3
--- NOTE | 2024-07-30 09:08 | P.OP ---
Date of Procedure: 07/30/24 Preoperative Diagnosis: Right ureteral and renal calculi Postoperative Diagnosis: Same Procedure(s) Performed: Cystoscopy, right ureteroscopy with laser lithotripsy, right renoscopy with laser lithotripsy, placement of 6 x 26 stent Anesthesia: BOO Surgeon: Steven Louis Estimated Blood Loss (ml): 0 Pathology: other (Stone) Condition: stable Disposition: PACU Indications for Procedure: Patient is 68. He has an 8 mm proximal ureteral stone on the right as well as renal stones. He comes for right ureteroscopy to the ureteral stone and possible to the renal stones. We have discussed percutaneous nephrostolithotomy which he declines. Description of Procedure: Patient brought to the operating suite. Given a general anesthetic. Placed lithotomy position with a sterile prep and drape. Cystoscopy Foroblique lens and 21 [place] sheath identifies a normal urethra. The prostate is minimally obstructing. The ureters normal the bladder mucosa is unremarkable. I passed an 035 wire up the right ureter. Over the wire is passed an 1113 [place] reentry sheath. It stops just distal to the right ureteral stone. I removed the inner sheath and passed a flexible ureteroscope up to the obstructing stone. The stone is broken into tiny pieces with the 275 m laser probe the largest fragments of which are basketed. Some of it dropped back into the renal pelvis thus I followed in the renal pelvis and break the remaining of the fragments. Since I am in the renal pelvis and the ureteral stone went without difficulty I looked through each calyx and identified several other stones that are broken into tiny pieces to be able to more easily passed. At the end of the procedure fragments are all tiny and thus I elected to terminate the procedure. I will leave a double-J catheter for 48 hours to dilate the ureter. I removed the scope and backloaded the wire onto the cystoscope over the wires passed a 6 x 26 double-J catheter the coils in the renal pelvis and in the bladder. Is left on a string so it can be removed in the office in 48 hours. blood Loss is minimal. The patient is awakened and returned to recovery in good condition.
--- NOTE | 2024-07-30 09:23 | FL ---
EXAMINATION TYPE: FL guidance operating room DATE OF EXAM: 07/30/2024 FLUOROSCOPY Cysto with litho for RT sided stones 17.1 sec fluoro time 1.7488 DAP LC 5 images are submitted. [facility], , 07/30/2024 9:21 AM
[2024-07-30 10:01] VITALS: BP 161/85; PULSE 66; RESP 15
== END 2024-07-30 10:10 | disposition home or self-care (01) ==
LOC: OR 05:52
PROVIDERS: ATTEND Urology
DX: N20.2 Calculus of kidney with calculus of ureter (principal); I48.91 Unspecified atrial fibrillation; I10 Essential (primary) hypertension; E78.5 Hyperlipidemia, unspecified; G47.30 Sleep apnea, unspecified; M10.9 Gout, unspecified; Z87.442 Personal history of urinary calculi; Z87.891 Personal history of nicotine dependence; Z79.01 Long term (current) use of anticoagulants; Z79.899 Other long term (current) drug therapy
CPT/HCPCS: 82365; 74018; 52353; C1769; C1894; J1100; J0690; J2405; J2003; J3010; J1885; J2704; J1596

== ENCOUNTER → 2024-09-29 | Outpatient (CLI) | payer MEDICARE ==
--- NOTE | 2024-09-29 10:31 | XR ---
EXAMINATION TYPE: XR KUB DATE OF EXAM: 09/29/2024 9:31 AM COMPARISON: 07/30/2024 CLINICAL INDICATION: Male, 69 years old with history of N20.0 Calculus kidney; PHH, right-sided pain in the last few weeks. TECHNIQUE: One radiographic view of the abdomen was obtained. FINDINGS: There is bilateral nephrolithiasis is redemonstrated. The dominant irregular stone on the r ight previously measuring up to 2.6 cm appears more fragmentary/smaller, largest measuring 1.0 cm now . The previous calcification seen at the right paramedian mid abdomen is no longer seen. Numerous lef t-sided renal stones measuring up to 5 mm are redemonstrated. There is a new 5 mm calcification left paramedian mid abdomen. Similar pelvic phleboliths. IMPRESSION: 1. Extensive bilateral nephrolithiasis. The previous dominant right renal calcification is smaller, l argest now measuring up to 1.0 cm versus 2.6 cm, previously. 2. Previous right paramedian mid abdominal calcification appears to have cleared. There is a new calc ification measuring 5 mm on the left which could represent a ureteral stone. Correlate for any left-s ided renal colic. [facility], , 09/29/2024 10:29 AM
== END | disposition home or self-care (01) ==
LOC: RADXRMAIN 09:16
PROVIDERS: ATTEND Urology
DX: N20.0 Calculus of kidney (principal); N28.89 Other specified disorders of kidney and ureter
CPT/HCPCS: 74018